=== PATIENT | female | born 1980 | race Caucasian/White ===

== ENCOUNTER 2017-02-15 12:13 | Emergency (ER) | payer SELFPAY ==
[~2017-02-15] VITALS: Ht 175.3 cm; Wt 70.0 kg
[2017-02-15 12:15] VITALS: BP 148/86; PULSE 86; RESP 18; TEMP 97.7; O2SAT 98
--- NOTE | 2017-02-15 12:22 | PD ---
Physical Exam Date Seen by Provider: Feb 15, 2017 Time Seen by Provider: 12:18 Data Data Last Documented VS Vital Signs Date Time Temp Pulse Resp B/P (MAP) Pulse Ox O2 Delivery O2 Flow Rate FiO2 02/15/17 12:15 97.7 86 18 148/86 (106) 98 MDM Supervised Visit with MKIEY: No Narrative Course 37-year-old diabetic female presents to the ED for intermittent weakness, nausea x "3 or 4 days." States that she's been out of insulin for 3 weeks. She thinks her symptoms might be related to a wound on the back of her right calf. States that it was "a bite" but won't heal. She's took a few doses of old antibiotic (Bactrim) that she had at home with no improvement of symptoms. History MRSA. Vitals reviewed. Blood glucose 235. Patient seen in triage and awaiting bed placement. Sumaya Goode Feb 15, 2017 12:22
[2017-02-15] MEDS ORDERED: SODIUM CHLOR 0.9% 1000 ML INJ 1,000 ML IV ONE (12:32)
--- NOTE | 2017-02-15 12:35 | PD ---
HPI Chief Complaint: General Weakness Time Seen by Provider: 12:24 Travel History International Travel<30 days: No Contact w/Intl Traveler<30days: No Traveled to known affect area: No History of Present Illness HPI 37-year-old female presents to the emergency department for evaluation of wound to the right posterior lower leg, generalized weakness, vomiting. Patient states she is a type I diabetic and has been off of her 70/30 insulin for approximately 3 weeks. She states that she takes 30 units twice daily. She also reports history of peripheral neuropathy, hypertension. She states she is not currently taking any medications because she is out of her insulin. Patient states that she took 3 days worth of Bactrim at home with improvement to the wound to the right lower leg. However, she ran out of her antibiotic and needs more antibiotics. 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 States she has not used any IV drugs since then. She reports subjective fevers, nausea, vomiting. No headache. No chest pain or shortness breath. No abdominal pain. No constipation or diarrhea. She reports decreased appetite states she has not eaten today. She denies any syncopal episodes. [facility] Past Medical History Diabetes: Yes Social History Alcohol Use: Yes (occasional) Tobacco Use: Yes (one pack per day) Substance Use: No Allergies-Medications (Allergen,Severity, Reaction): Coded Allergies: No Known Allergies (Unverified , 02/15/17) Reported Meds & Prescriptions Reported Meds & Active Scripts Active Bactrim DS (Sulfamethoxazole-Trimethoprim) 800-160 Mg Tab 1 Tab PO BID Novolin 70-30 Inj (Insulin Human Isoph/Insulin Regular) 1,000 Unit/10 Ml Vial 30 Units SQ BID Review of Systems Except as stated in HPI: all other systems reviewed are Neg Physical Exam Narrative GENERAL: Well-nourished, well-developed female patient, afebrile. SKIN: Focused skin assessment warm/dry. Patient has a 3 cm x 2 cm scabbed area to the right posterior lower leg with very mild surrounding erythema. No fluctuance or induration. HEAD: Normocephalic. Atraumatic. EYES: No scleral icterus. No injection or drainage. NECK: Supple, trachea midline. No JVD or lymphadenopathy. CARDIOVASCULAR: Regular rate and rhythm without murmurs, gallops, or rubs. Bilateral radial and pedal pulses 2+. RESPIRATORY: Breath sounds equal bilaterally. No accessory muscle use. Lungs sounds are clear to auscultation. GASTROINTESTINAL: Abdomen soft, non-tender, nondistended. MUSCULOSKELETAL: No cyanosis, or edema. Bilateral upper and lower extremity strength 5/5. All extremities are neurovascularly intact. BACK: Nontender without obvious deformity. No CVA tenderness. Data Data Last Documented VS Vital Signs Date Time Temp Pulse Resp B/P (MAP) Pulse Ox O2 Delivery O2 Flow Rate FiO2 02/15/17 12:58 86 20 172/90 (117) 98 Room Air 02/15/17 12:15 97.7 Orders Orders Electrocardiogram (02/15/17 12:32) Ed Urine Pregnancytest Poc (02/15/17 12:32) Complete Blood Count With Diff (02/15/17 12:32) Comprehensive Metabolic Panel (02/15/17 12:32) Magnesium (Mg) (02/15/17 12:32) Urinalysis - C+S If Indicated (02/15/17 12:32) Ecg Monitoring (02/15/17 12:32) Iv Access Insert/Monitor (02/15/17 12:32) Oximetry (02/15/17 12:32) Ondansetron Inj (Zofran Inj) (02/15/17 12:45) Sodium Chloride 0.9% Flush (Ns Flush) (02/15/17 12:45) Sodium Chlor 0.9% 1000 Ml Inj (Ns 1000 M (02/15/17 12:32) Ketorolac Inj (Toradol Inj) (02/15/17 12:45) Beta Hydroxybutyrate (Acetone) (02/15/17 12:32) Labs Laboratory Tests Test 02/15/17 12:40 White Blood Count 6.3 TH/MM3 Red Blood Count 4.05 MIL/MM3 Hemoglobin 10.7 GM/DL Hematocrit 32.7 % Mean Corpuscular Volume 80.7 FL Mean Corpuscular Hemoglobin 26.4 PG Mean Corpuscular Hemoglobin Concent 32.8 % Red Cell Distribution Width 17.9 % Platelet Count 356 TH/MM3 Mean Platelet Volume 7.8 FL Neutrophils (%) (Auto) 43.8 % Lymphocytes (%) (Auto) 35.9 % Monocytes (%) (Auto) 12.2 % Eosinophils (%) (Auto) 7.0 % Basophils (%) (Auto) 1.1 % Neutrophils # (Auto) 2.8 TH/MM3 Lymphocytes # (Auto) 2.3 TH/MM3 Monocytes # (Auto) 0.8 TH/MM3 Eosinophils # (Auto) 0.4 TH/MM3 Basophils # (Auto) 0.1 TH/MM3 CBC Comment DIFF FINAL Differential Comment Urine Color LIGHT-YELLOW Urine Turbidity HAZY Urine pH 5.5 Urine Specific [place] 1.010 Urine Protein NEG mg/dL Urine Glucose (UA) 300 mg/dL Urine Ketones NEG mg/dL Urine Occult Blood NEG Urine Nitrite NEG Urine Bilirubin NEG Urine Urobilinogen LESS THAN 2.0 MG/DL Urine Leukocyte Esterase NEG Urine WBC LESS THAN 1 /hpf Urine Squamous Epithelial Cells 5 /hpf Urine Bacteria RARE /hpf Urine Mucus FEW /lpf Microscopic Urinalysis Comment CULT NOT INDICATED Blood Urea Nitrogen 16 MG/DL Creatinine 0.68 MG/DL Random Glucose 193 MG/DL Total Protein 7.8 GM/DL Albumin 3.1 GM/DL Calcium Level 7.9 MG/DL Magnesium Level 1.9 MG/DL Alkaline Phosphatase 136 U/L Aspartate Amino Transf (AST/SGOT) 49 U/L Alanine Aminotransferase (ALT/SGPT) 52 U/L Total Bilirubin 0.3 MG/DL Sodium Level 130 MEQ/L Potassium Level 4.1 MEQ/L Chloride Level 98 MEQ/L Carbon Dioxide Level 23.8 MEQ/L Anion Gap 8 MEQ/L Estimat Glomerular Filtration Rate 97 ML/MIN B-Hydroxybutyrate 0.10 MMOL/L [facility] Medical Decision Making Medical Screen Exam Complete: Yes Emergency Medical Condition: Yes Medical Record Reviewed: Yes Differential Diagnosis Hyperglycemia versus DKA versus cellulitis versus electrolyte abnormality Narrative Course 29-year-old female presents to the emergency department for evaluation of generalized weakness, nausea, vomiting, wound to her right lower extremity. She also reports being out of her insulin for 3 weeks. Glucose in triage was 235. CBC, CMP, magnesium, beta hydroxybutyrate, UA, UPT are ordered and pending. Patient is given normal saline 1 L IV bolus, Zofran 4 mg IV, Toradol 30 mg IV for pain. CBC shows no acute abnormality, hemoglobin 10.7, hematocrit 32.7. CMP shows slight hyponatremia 1:30, glucose 193, AST 49, alkaline phosphatase 136. Magnesium is 1.9. Beta hydroxybutyrate is 0.10. UA is negative for acute infection. UPT is negative. I discussed results with patient. Labs are reassuring. Patient will be given a prescription for her Novolin 70/30 insulin. She states she takes 30 units twice a day. Patient will also be given a prescription for Bactrim. She is encouraged to follow up with a primary care physician. She'll be given the information for the [facility]. The patient was discharged in stable condition with instructions, including return instructions and follow up instructions. Diagnosis Primary Impression: Hyperglycemia without ketosis Additional Impression: Cellulitis Qualified Codes: L03.115 - Cellulitis of right lower limb Referrals: [facility] call for appointment Patient Instructions: Cellulitis (ED), Diabetic Hyperglycemia (ED), General Instructions Additional Instructions: I have given you a prescription for your insulin. Please follow up at the [facility] for further refills. Take antibiotic as directed until gone. This is free at [facility] Clean wound to right leg twice daily with soap and water and apply over-the- counter antibiotic ointment. Follow-up with your primary care physician. Return to the emergency department for any acute worsening of symptoms. Med/Other Pt SpecificInfo: Prescription(s) given Scripts Sulfamethoxazole-Trimethoprim (Bactrim DS) 800-160 Mg Tab 1 TAB PO BID for Infection, #20 TAB 0 Refills Prov: Malou Laws 02/15/17 Insulin Human Isophane-Regular 70-30 Inj (Novolin 70-30 Inj) 1,000 Unit/10 Ml Vial 30 UNITS SQ BID for Blood Sugar Management, #1 VIAL 0 Refills Prov: Malou Laws 02/15/17 Disposition: 01 DISCHARGE HOME Condition: Stable Malou Laws Feb 15, 2017 12:35
[2017-02-15] MEDS ORDERED: ONDANSETRON HCL 4 MG/2 ML VIAL IVP ONE (12:45)
[2017-02-15] MEDS ORDERED: KETOROLAC TROMETHAMINE 30 MG/ML (IVP) VIAL IV PUSH ONE (12:45)
[2017-02-15] MEDS ORDERED: SODIUM CHLORIDE 0.9% FLUSH 10 ML FLUSH IVF PRN (12:45)
[2017-02-15 12:58] VITALS: BP 172/90; PULSE 86; RESP 20; O2SAT 98
[2017-02-15 13:03] LABS: AUTOMATED NEUTROPHIL # 2.8 TH/MM3 (1.8-7.7); BASOPHIL # 0.1 TH/MM3 (0-0.2); BASOPHIL % 1.1 % (0.0-2.0); EOSINOPHIL # 0.4 TH/MM3 (0-0.4); HEMATOCRIT 32.7 % (35.0-46.0); HEMO FLAGS DIFF FINAL; LYMPH % 35.9 % (9.0-44.0); LYMPHOCYTE # 2.3 TH/MM3 (1.0-4.8); MEAN CELL VOLUME 80.7 FL (80.0-100.0); MEAN CORPUSCULAR HEMOGLOBIN 26.4 PG (27.0-34.0); MEAN CORPUSCULAR HGB CONC 32.8 % (32.0-36.0); MONO % 12.2 % (0.0-8.0); NEUT % 43.8 % (16.0-70.0); PLATELET COUNT 356 TH/MM3 (150-450); RED BLOOD COUNT 4.05 MIL/MM3 (4.00-5.30); RED CELL DISTRIBUTION WIDTH 17.9 % (11.6-17.2); WHITE BLOOD COUNT 6.3 TH/MM3 (4.0-11.0)
[2017-02-15 13:04] LABS: BACTERIA, URINE RARE /hpf; BLOOD, URINE NEG (NEG); COMMENT (UR) CULT NOT INDICATED; CULTURE IF INDICATED CULT NOT INDICATED; GLUCOSE,URINE 300 mg/dL (NEG); KETONE, URINE NEG (NEG); MUCUS URINE FEW /lpf (OCC); NITRITE,URINE NEG (NEG); PH, URINE 5.5 (5.0-8.5); SQUAMOUS EPITHELIAL CELL URINE 5 /hpf (0-5); URINE COLOR LIGHT-YELLOW (YELLW/STRAW)
[2017-02-15 13:23] LABS: ALT (GPT) 52 U/L (10-53); ANION GAP 8 MEQ/L (5-15); AST (GOT) 49 U/L (15-37); BICARBONATE 23.8 MEQ/L (21.0-32.0); BLOOD UREA NITROGEN 16 MG/DL (7-18); CHLORIDE 98 MEQ/L (98-107); GLOMERULAR FILTRATION RATE 97 ML/MIN (>89); MAGNESIUM 1.9 MG/DL (1.5-2.5); POTASSIUM 4.1 MEQ/L (3.5-5.1); SODIUM (NA) 130 MEQ/L (136-145)
[2017-02-15 13:25] LABS: ALKALINE PHOSPHATASE 136 U/L (45-117); TOTAL BILIRUBIN ADULT 0.3 MG/DL (0.2-1.0)
[2017-02-15] MEDS ORDERED: BACT800T5 PO ×2 (14:02→14:11)
[2017-02-15] MEDS ORDERED: NOVO7030P2 SQ ×2 (14:02→14:11)
[2017-02-15 14:20] VITALS: BP 154/86
--- NOTE | 2017-02-16 01:23 | EKG ---
Date Performed: 02/15/2017 Time Performed: 13:56:41 PTAGE: 37 years EKG: Sinus rhythm NORMAL ECG NO PREVIOUS TRACING DOCTOR: David Portillo Interpretating Date/Time 02/16/2017 01:23:08
== END 2017-02-15 14:21 | disposition home or self-care (01) ==
LOC: EDBD 12:13 → NEPE 12:13
DX: L03.115 Cellulitis of right lower limb (principal); E10.65 Type 1 diabetes mellitus with hyperglycemia; E87.1 Hypo-osmolality and hyponatremia; R53.1 Weakness; R11.2 Nausea with vomiting, unspecified; R11.10 Vomiting, unspecified; E10.40 Type 1 diabetes mellitus with diabetic neuropathy, unspecified; F17.200 Nicotine dependence, unspecified, uncomplicated; Z79.4 Long term (current) use of insulin
CPT/HCPCS: 80053; 81001; 82010; 83735; 84703; 85025; 93005; 96361; 96374; 96375; 99284; J1885; J2405; J7030

== ENCOUNTER 2017-03-03 11:49 | Emergency (ER) | payer SELFPAY ==
[~2017-03-03] VITALS: Ht 175.3 cm; Wt 74.0 kg
[~2017-03-03 11:49] MED LIST: BACT800T5 PO; NOVO7030P2 SQ
[2017-03-03 11:53] VITALS: BP 186/97; PULSE 94; RESP 24; TEMP 97.9; O2SAT 97
[2017-03-03] MEDS ORDERED: BACT800T5 PO (12:14)
[2017-03-03] MEDS ORDERED: CEPH-460 PO (12:14)
[2017-03-03] MEDS ORDERED: IBUP-232 PO (12:14)
--- NOTE | 2017-03-03 12:14 | PD ---
HPI Chief Complaint: Skin Problem Time Seen by Provider: 12:02 Travel History International Travel<30 days: No Contact w/Intl Traveler<30days: No Traveled to known affect area: No History of Present Illness HPI 37 year-old female presents to the emergency department for evaluation of a wound on her left great toe. Patient states that this started as a blister by her shoes continued to rub it and a wound developed. She reports significant pain at the site. Denies fever Or chills. Denies limitations range of motion or alterations in sensation of the affected toe. Pain does not radiate anywhere. She is up-to-date on her tetanus status. She has no symptoms to report. PFSH Past Medical History Diabetes: Yes ?: Unknown Tubal Ligation: Yes Past Surgical History Appendectomy: Yes Tonsillectomy: Yes Social History Alcohol Use: No Tobacco Use: No Substance Use: No Allergies-Medications (Allergen,Severity, Reaction): Coded Allergies: No Known Allergies (Unverified , 02/15/17) Reported Meds & Prescriptions Reported Meds & Active Scripts Active Ibuprofen 600 Mg Tab 600 Mg PO Q8H PRN Keflex (Cephalexin) 500 Mg Cap 500 Mg PO Q6H 5 Days Bactrim DS (Sulfamethoxazole-Trimethoprim) 800-160 Mg Tab 1 Tab PO BID Bactrim DS (Sulfamethoxazole-Trimethoprim) 800-160 Mg Tab 1 Tab PO BID Novolin 70-30 Inj (Insulin Human Isoph/Insulin Regular) 1,000 Unit/10 Ml Vial 30 Units SQ BID Review of Systems Except as stated in HPI: all other systems reviewed are Neg Physical Exam Narrative GENERAL: Unkempt female patient, ambulatory no acute distress SKIN: Focused skin assessment warm/dry. 2 cm in diameter open wound on the anterior aspect of the left great toe. Mild erythema surrounding it. No significant induration. No fluctuation. No active drainage. HEAD: Normocephalic. EYES: No scleral icterus. No injection or drainage. NECK: Supple, trachea midline. No JVD or lymphadenopathy. CARDIOVASCULAR: Elevated rate and rhythm without murmurs, gallops, or rubs. RESPIRATORY: Breath sounds equal bilaterally. No accessory muscle use. MUSCULOSKELETAL: No cyanosis, or edema. Distal pulses are palpable. Cap refill within normal limits. BACK: Nontender without obvious deformity. No CVA tenderness. Data Data Last Documented VS Vital Signs Date Time Temp Pulse Resp B/P (MAP) Pulse Ox O2 Delivery O2 Flow Rate FiO2 03/03/17 12:27 03/03/17 11:53 97.9 94 24 97 Orders Orders Ed Discharge Order (03/03/17 12:19) MDM Medical Decision Making Medical Screen Exam Complete: Yes Emergency Medical Condition: Yes Medical Record Reviewed: Yes Differential Diagnosis Wound chronic versus acute versus infected versus cellulitis versus abscess Narrative Course 37 year-old female presents to emergency room for evaluation wound on her left great toe. There is a open wound noted with mild surrounding cellulitis. I feel the patient wound care. Will start on oral antibiotic. Patient is very angry with this plan and is requesting Dilaudid by name and something to eat. She has torn her prescriptions and thrown them on the ground.. She will be discharged at this time. Diagnosis Primary Impression: Wound, open, foot Qualified Codes: S91.301A - Unspecified open wound, right foot, initial encounter Referrals: [facility] Primary Care Physician Patient Instructions: Acute Wound Care (GEN), General Instructions Additional Instructions: Keep the wound clean and dry Wash with warm soapy water twice a day and pat dry Start antibiotics today and take until they are all gone Follow-up with a primary care provider Return immediately with any acute worsening symptoms Med/Other Pt SpecificInfo: Prescription(s) given Scripts Ibuprofen (Ibuprofen) 600 Mg Tab 600 MG PO Q8H Y for PAIN, #30 TAB 0 Refills Prov: Caroline Santana 03/03/17 Cephalexin (Keflex) 500 Mg Cap 500 MG PO Q6H for Infection for 5 Days, #20 CAP 0 Refills Prov: Caroline Santana 03/03/17 Sulfamethoxazole-Trimethoprim (Bactrim DS) 800-160 Mg Tab 1 TAB PO BID for Infection, #20 TAB 0 Refills Prov: Caroline Santana 03/03/17 Disposition: 01 DISCHARGE HOME Condition: Stable Caroline Santana Mar 03, 2017 12:14
== END 2017-03-03 12:28 | disposition home or self-care (01) ==
LOC: NEPK 11:49
DX: S91.301A Unspecified open wound, right foot, initial encounter (principal); E11.9 Type 2 diabetes mellitus without complications
CPT/HCPCS: 99284